=== PATIENT | male | born 1965 | race Asian ===

== ENCOUNTER → 2023-10-27 | Day surgery (SDC) | payer OTHER ==
[~2023-10-27] MED LIST: FENTANYL CITRATE/PF 100MCG/2 ML INJ ONE; HYOSCYAMINE SULFATE 0.5 MG/ML INJ ONE; LEVOTHYROXINE137 MCG PO; METFORMIN HCL500 MG PO; PRAVASTATIN SOD10 MG PO; PROPOFOL IV EMULSION 50 ML IV ONE
[2023-10-27] MEDS: LACTATED RINGER'S 1,000 ML ONE (11:34)
[2023-10-27 12:30] VITALS: TEMP 97.6
[2023-10-27 12:50] VITALS: BP 101/75; PULSE 58; RESP 18; O2SAT 100
== END | disposition home or self-care (01) ==
LOC: OR 10:45
PROVIDERS: ATTEND Internal Medicine Gastroenterology
DX: K59.09 Other constipation (principal); D12.3 Benign neoplasm of transverse colon; D12.4 Benign neoplasm of descending colon; D12.8 Benign neoplasm of rectum; K57.30 Diverticulosis of large intestine without perforation or abscess without bleeding; K64.8 Other hemorrhoids; E78.5 Hyperlipidemia, unspecified; E03.9 Hypothyroidism, unspecified; F17.210 Nicotine dependence, cigarettes, uncomplicated; Z71.6 Tobacco abuse counseling; Z01.810 Encounter for preprocedural cardiovascular examination; Z79.84 Long term (current) use of oral hypoglycemic drugs; Z79.899 Other long term (current) drug therapy
CPT/HCPCS: 45385; 93005; J1980; J2704; J3010; J7121; 45378